=== PATIENT | male | born 1985 | race African-American/Black ===

== ENCOUNTER → 2017-06-04 | Outpatient (CLI) | payer SELFPAY ==
[2015-07-20 15:06] VITALS: BP 148/88
[~2017-06-04] MED LIST: [UNRECOGNIZED DRUG - OTHER] PO
[2017-06-04 14:24] LABS: EOS # 0.1 (0.04-0.40); EOS % 1.4 % (0.0-4.0); HEMOGLOBIN 15.9 g/dL (13.5-18.0); LYMPH# 1.9 (1.50-4.00); MEAN CELL VOLUME 86 fl (78-100); MEAN CORPUSCULAR HEMOGLOBIN 28 pg (27-31); MEAN CORPUSCULAR HGB CONC 33 g/dL (33-37); MEAN PLATELET VOLUME 9.7 fl (7.4-10.4); MONO # 0.6 (0.20-0.80); NEU # 4.4 (1.40-6.50); PLATELET COUNT 200 K/mm3 (130-400); RED CELL DISTRIBUTION WIDTH 13.5 % (11.5-14.5); WHITE BLOOD COUNT 7.1 K/mm3 (4.8-10.8)
[2017-06-04 14:34] LABS: URINE COLOR YELLOW
[2017-06-04 14:35] LABS: PH-URINE 5.5 (5.0 - 8.0); URINE APPEARANCE CLEAR; URINE BILIRUBIN NEGATIVE (NEGATIVE); URINE BLOOD NEGATIVE (NEGATIVE); URINE GLUCOSE NEGATIVE (NEGATIVE); URINE KETONE NEGATIVE (NEGATIVE); URINE LEUKOCYTE ESTERASE NEGATIVE (NEGATIVE); URINE NITRATE NEGATIVE (NEGATIVE); URINE PROTEIN(semi-quant) NEGATIVE (NEGATIVE); URINE UROBILINOGEN NORMAL (NORMAL); URINE WBC 0-1 /hpf (0-3)
[2017-06-04 14:43] LABS: ALBUMIN 4.3 g/dL (3.5-5.0); CALCIUM 9.8 mg/dL (8.4-10.2); POTASSIUM 4.2 mmol/L (3.6-5.0); TOTAL BILIRUBIN 1.2 mg/dL (0.2-1.3); TOTAL PROTEIN 7.9 g/dL (6.3-8.2)
[2017-06-04 14:59] LABS: D-DIMER 0.19 mg/L FEU (0.15-0.50)
== END ==
LOC: RAD 14:03
PROVIDERS: Nurse Practitioner Family
DX: R05 Cough (principal); R06.02 Shortness of breath; I10 Essential (primary) hypertension; R19.7 Diarrhea, unspecified

== ENCOUNTER 2017-09-13 08:09 | Emergency (ER) | payer SELFPAY ==
[~2017-09-13] VITALS: Ht 167.6 cm; Wt 90.9 kg
[2017-09-13] MEDS ORDERED: PROAIR HFA0.09 MG/AC IH (09:45)
[2017-09-13] MEDS ORDERED: DELTASONE20 M1 PO (09:45)
[2017-09-13 11:53] VITALS: BP 164/99
== END 2017-09-13 09:55 | disposition home or self-care (01) ==
LOC: ED 08:09
DX: J40 Bronchitis, not specified as acute or chronic (principal); F41.0 Panic disorder [episodic paroxysmal anxiety]; F17.200 Nicotine dependence, unspecified, uncomplicated; R00.0 Tachycardia, unspecified
CPT/HCPCS: J7512